=== PATIENT | male | born 1970 | race Caucasian/White ===

== ENCOUNTER → 2017-07-02 | Outpatient (CLI) | payer OTHER ==
[~2017-07-02] MED LIST: ADDERALL 10 MG10 MG; ALLOPURINOL 10100 M1 PO; ALLOPURINOL 30300 M2 PO; CARVEDILOL12.5 MG; CELEBREX 200 M200 M1; DEPAKOTE ER500 MG PO; DEPAKOTE500 MG PO; FENOFIBRATE160 MG PO; GABA; GRALISE600 MG PO; HYDROCODONE-AP1 EAC6 PO; HYDROCODONE-APA1 TA1 PO; LAMICTAL100 MG PO; LATUDA40 MG PO; LEVOTHYROXIN0.137 M1 PO; MEDROLDOSEPACK PO; MEGA TAURINE1000 MG; NEURONTIN 300300 M1; NEURONTIN 300300 M1 PO; NYSTATIN100000 UNI PO; OXY; PAXIL10 MG PO; RISPERIDONE1 MG; ROBAXIN 750 MG750 M1 PO; SAPHRIS5 MG SUBLING; SEROQUEL 50 MG50 MG; SEROQUEL 50 MG50 MG PO; SERTRALINE HCL50 MG PO; SIMVASTATIN40 MG PO; TRAMADOL 50 MG50 MG PO; TRAZODONE 150150 M1 PO; TRAZODONE HCL100 MG PO; ULORIC80 MG; VALIUM5 MG PO; VISTARIL 25 MG25 M1; VISTARIL 25 MG25 M1 PO; VITAMIN D 5050000 I1; ZANAFLEX4 MG; ZANAFLEX4 MG PO; ZOLOFT50 MG PO; ZYPREXA5 MG PO; [UNRECOGNIZED DRUG - OTHER] PO
== END ==
LOC: M.ULTRA 06-30 13:00
DX: H92.09 Otalgia, unspecified ear (principal)

== ENCOUNTER 2017-08-02 12:09 | Emergency (ER) | payer OTHER ==
[~2017-08-02] VITALS: Ht 185.4 cm; Wt 108.9 kg
[~2017-08-02 12:09] MED LIST changes: -CELEBREX 200 M200 M1; -LAMICTAL100 MG PO; -PAXIL10 MG PO; -ZANAFLEX4 MG; -ZYPREXA5 MG PO
[2017-08-02] MEDS ORDERED: LAMICTAL100 MG PO (12:22)
[2017-08-02] MEDS ORDERED: ZYPREXA5 MG PO (12:22)
[2017-08-02] MEDS ORDERED: PAXIL10 MG PO (12:22)
[2017-08-02 12:33] LABS: URINE BILIRUBIN NEGATIVE (Negative); URINE BLOOD NEGATIVE (Negative); URINE CLARITY CLEAR; URINE COLOR YELLOW; URINE GLUCOSE-RANDOM NEGATIVE (Negative); URINE KETONES NEGATIVE (Negative); URINE LEUKOCYTES-REFLEX NEGATIVE (Negative); URINE NITRITE-REFLEX NEGATIVE (Negative); URINE PROTEIN NEGATIVE (Negative); URINE SPECIFIC GRAVITY <= 1.005 (1.005-1.030); URINE UROBILINOGEN 0.2 E.U./dl (0.2-1.0)
[2017-08-02 12:41] LABS: AMP/METHAMP Negative (Negative); BARBITURATES Negative (Negative); BENZODIAZEPINES POSITIVE (Negative); COCAINE Negative (Negative); METHADONE Negative (Negative); OPIATES POSITIVE (Negative); PCP Negative (Negative); THC Negative (Negative)
[2017-08-02 12:41] LABS: ABSOLUTE BASOPHILS 0.1 thou/uL (0.0-0.2); ABSOLUTE EOSINOPHILS 0.1 thou/uL (0.0-0.7); ABSOLUTE LYMPHOCYTES 1.9 thou/uL (0.8-5.3); ABSOLUTE MONOCYTES 0.9 thou/uL (0.0-1.2); BASOPHILS 0.5 %; EOSINOPHILS 0.6 %; HEMATOCRIT 51.9 % (42.0-52.0); HEMOGLOBIN 17.9 gm/dL (14.0-18.0); LYMPHOCYTES 12.1 %; MCH 30.4 pg (26.0-34.0); MCHC 34.4 g/dL (28.0-37.0); MCV 88.4 fL (80.0-100.0); MONOCYTES 5.8 %; MPV 7.1 fl. (7.2-11.1); NUCLEATED RBCS 0 /100WBC; PLATELET COUNT* 323 thou/uL (150-400); RBC 5.87 mil/uL (4.50-6.00); RDW-CV 14.4 % (10.5-14.5)
[2017-08-02 13:09] LABS: ACETAMINOPHEN < 2 ug/mL (10-30); ALCOHOL < 10 mg/dL (<10); SALICYLATE 6.4 mg/dL (2.8-20.0)
[2017-08-02 13:11] LABS: ALBUMIN 4.1 g/dL (3.4-5.0); CALCIUM 9.9 mg/dL (8.5-10.1); POTASSIUM 4.6 mmol/L (3.5-5.1); TOTAL BILIRUBIN 0.6 mg/dL (<0.1-1.0); TOTAL PROTEIN 7.7 g/dL (6.4-8.2)
[2017-08-02 16:36] VITALS: BP 140/81
== END 2017-08-02 16:39 | disposition home or self-care (01) ==
LOC: M.ERS 12:09
PROVIDERS: Emergency Medicine
DX: F41.9 Anxiety disorder, unspecified (principal); F31.9 Bipolar disorder, unspecified; F25.9 Schizoaffective disorder, unspecified

== ENCOUNTER 2017-09-03 05:44 | Emergency (ER) | payer OTHER ==
[~2017-09-03] VITALS: Ht 185.4 cm; Wt 99.8 kg
[~2017-09-03 05:44] MED LIST changes: +LAMICTAL100 MG PO; +PAXIL10 MG PO; +ZYPREXA5 MG PO
[2017-09-03] MEDS ORDERED: CELEBREX 200 M200 M1 (06:06)
[2017-09-03 06:07] LABS: ABSOLUTE BASOPHILS 0.1 thou/uL (0.0-0.2); ABSOLUTE EOSINOPHILS 0.2 thou/uL (0.0-0.7); ABSOLUTE LYMPHOCYTES 3.1 thou/uL (0.8-5.3); ABSOLUTE MONOCYTES 0.9 thou/uL (0.0-1.2); ABSOLUTE NEUTROPHILS 8.2 thou/uL (1.6-8.1); BASOPHILS 0.9 %; HEMATOCRIT 47.9 % (42.0-52.0); HEMOGLOBIN 16.5 gm/dL (14.0-18.0); LYMPHOCYTES 24.3 %; MCH 30.1 pg (26.0-34.0); MCHC 34.4 g/dL (28.0-37.0); MCV 87.4 fL (80.0-100.0); MONOCYTES 7.4 %; MPV 7.2 fl. (7.2-11.1); NUCLEATED RBCS 0 /100WBC; PLATELET COUNT* 281 thou/uL (150-400); POLYS 65.4 %; RBC 5.48 mil/uL (4.50-6.00); WBC 12.6 thou/uL (4.0-11.0)
[2017-09-03] MEDS ORDERED: ZANAFLEX4 MG (06:07)
[2017-09-03 06:16] LABS: CALCIUM 8.9 mg/dL (8.5-10.1); CREATININE 0.9 mg/dL (0.6-1.3); POTASSIUM 3.5 mmol/L (3.5-5.1)
[2017-09-03 06:21] LABS: ALBUMIN 3.8 g/dL (3.4-5.0); TOTAL BILIRUBIN 0.4 mg/dL (<0.1-1.0); TOTAL PROTEIN 7.1 g/dL (6.4-8.2)
[2017-09-03 06:34] LABS: ACETAMINOPHEN < 2 ug/mL (10-30); SALICYLATE 6.6 mg/dL (2.8-20.0)
[2017-09-03 07:11] LABS: URINE BILIRUBIN NEGATIVE (Negative); URINE BLOOD NEGATIVE (Negative); URINE CLARITY CLEAR; URINE COLOR YELLOW; URINE GLUCOSE-RANDOM NEGATIVE (Negative); URINE KETONES NEGATIVE (Negative); URINE LEUKOCYTES-REFLEX NEGATIVE (Negative); URINE NITRITE-REFLEX NEGATIVE (Negative); URINE PROTEIN NEGATIVE (Negative); URINE SPECIFIC GRAVITY <= 1.005 (1.005-1.030); URINE UROBILINOGEN 0.2 E.U./dl (0.2-1.0)
[2017-09-03 07:30] LABS: AMP/METHAMP Negative (Negative); BARBITURATES Negative (Negative); BENZODIAZEPINES POSITIVE (Negative); COCAINE Negative (Negative); METHADONE Negative (Negative); OPIATES Negative (Negative); PCP Negative (Negative); THC Negative (Negative)
[2017-09-03 15:48] VITALS: BP 113/77
== END 2017-09-03 16:05 | disposition still patient (30) ==
LOC: M.ERS 05:44
PROVIDERS: Emergency Medicine
DX: F41.9 Anxiety disorder, unspecified (principal); R45.850 Homicidal ideations; F31.9 Bipolar disorder, unspecified; F25.9 Schizoaffective disorder, unspecified; F17.210 Nicotine dependence, cigarettes, uncomplicated; Z90.89 Acquired absence of other organs; Z88.0 Allergy status to penicillin; Z88.8 Allergy status to other drugs, medicaments and biological substances